=== PATIENT | male | born 1985 | race Caucasian/White ===

== ENCOUNTER 2024-04-11 09:20 | Emergency (ER) | payer MEDICAID ==
[~2024-04-11] VITALS: Ht 162.6 cm; Wt 59.1 kg
[~2024-04-11 09:20] MED LIST: HYDR-3972 PO; NO HOME MEDS; SULF1TAB49 PO
[2024-04-11 09:21] VITALS: TEMP 98.1
[2024-04-11 11:02] VITALS: BP 110/67; PULSE 79; RESP 10; O2SAT 99
== END 2024-04-11 11:05 | disposition home or self-care (01) ==
LOC: ER 09:20
DX: S93.401A Sprain of unspecified ligament of right ankle, initial encounter (principal); Z88.0 Allergy status to penicillin; Z79.2 Long term (current) use of antibiotics; Z79.899 Other long term (current) drug therapy; Y08.89XA Assault by other specified means, initial encounter; Y93.89 Activity, other specified; Y92.89 Other specified places as the place of occurrence of the external cause; Y99.8 Other external cause status
CPT/HCPCS: 73610; 73630; 99284

== ENCOUNTER → 2024-08-19 | Emergency (ER) | payer MEDICAID ==
[~2024-08-19] VITALS: Ht 160 cm; Wt 51.4 kg
[~2024-08-19] MED LIST changes: +CLIN-197 PO; +HYDR-3965 PO
[2024-08-19 21:01] VITALS: BP 144/85; PULSE 97; O2SAT 98
[2024-08-19 22:15] VITALS: RESP 15
[2024-08-19] MEDS: HYDROcodone/acetaminophen 5mg/325mg tablet PO ONE (22:15)
[2024-08-19 22:39] VITALS: TEMP 98.2
== END | disposition home or self-care (01) ==
LOC: ER 20:52
DX: S02.2XXA Fracture of nasal bones, initial encounter for closed fracture (principal); S00.511A Abrasion of lip, initial encounter; Z88.0 Allergy status to penicillin; Z59.00 Homelessness unspecified; Z79.899 Other long term (current) drug therapy; Y08.89XA Assault by other specified means, initial encounter; Y93.89 Activity, other specified; Y92.89 Other specified places as the place of occurrence of the external cause; Y99.8 Other external cause status
CPT/HCPCS: 70486; 99284